=== PATIENT | male | born 1975 ===

== ENCOUNTER 2017-06-28 10:42 | Emergency (ER) | payer OTHER ==
[2017-06-28 10:47] VITALS: TEMP 99.1
--- NOTE | 2017-06-28 11:44 | C.PDOC ---
History Of Present Illness 42yo male, otherwise well, presents to ED for evaluation of a splinter in his right 3rd finger. Patient states he went to open the door in his apartment and there was a jagged piece of wood on which he injured his finger. HE states the pain is 6/10, dull and throbbing in nature and worse with movement. He denies any numbness or tingling to his finger. No other medical complaints. PMD: None Time Seen by Provider: 06/28/17 10:51 Chief Complaint (Nursing): Finger,Hand,&Wrist History Per: Patient History/Exam Limitations: no limitations Current Symptoms Are (Timing): Still Present Quality: Dull, "Pain" Pain Scale Rating Of: 6 Exacerbating Factor(s): Strenuous Use Of Affected Area Past Medical History Reviewed: Historical Data, Nursing Documentation, Vital Signs Vital Signs: Last Vital Signs Temp 99.1 F 06/28/17 10:46 Pulse 88 06/28/17 10:46 Resp 18 06/28/17 10:46 BP 146/83 06/28/17 10:46 Pulse Ox 97 06/28/17 12:44 - Medical History PMH: No Chronic Diseases Surgical History: No Surg Hx Family History: States: No Known Family Hx - Social History Hx Alcohol Use: Yes Hx Substance Use: No - Immunization History Hx Tetanus Toxoid Vaccination: No Hx Influenza Vaccination: No Hx Pneumococcal Vaccination: No Review Of Systems Except As Marked, All Systems Reviewed And Found Negative. Constitutional: Negative for: Fever, Chills Musculoskeletal: Positive for: Hand Pain (pain to right 3rd digit) Neurological: Negative for: Weakness, Numbness Physical Exam - Physical Exam Appears: Non-toxic, No Acute Distress Skin: Normal Color Eye(s): bilateral: Normal Inspection Neck: Supple Chest: Symmetrical Cardiovascular: Rhythm Regular Respiratory: Normal Breath Sounds Extremity: Tenderness (right 3rd digit tender to touch), Swelling (swelling to tip of right 3rd digit), Other (entry point noted on tip of right 3rd digit, no surrounding erythema, fluctuance. ) Neurological/Psych: Oriented x3 ED Course And Treatment O2 Sat by Pulse Oximetry: 97 (RA) Pulse Ox Interpretation: Normal Medical Decision Making Medical Decision Making: Impression: Right 3rd digit injury Plan: -- XR Right 3rd digit Time: 1223 XR Right 3rd digit FINDINGS: RIGHT MIDDLE FINGER: Right middle finger normal, without fracture of focal lesion. Remainder of the right hand (as seen on the AP view) grossly unremarkable. JOINTS: Normal. SOFT TISSUES: Normal. OTHER FINDINGS: None. IMPRESSION: Normal right middle finger radiographs. Disposition - Disposition Referrals: [facility] [Outside] Disposition: HOME/ ROUTINE Disposition Time: 13:08 Condition: STABLE Instructions: Foreign Body in Skin (DC) Forms: [facility] (Wolof), Gen Discharge Inst Lao, Work Excuse - Clinical Impression Clinical Impression: Splinter in skin - Scribe Statement The provider has reviewed the documentation as recorded by the Scribe (Liane Fatima) Provider Attestation: All medical record entries made by the Scribe were at my direction and personally dictated by me. I have reviewed the chart and agree that the record accurately reflects my personal performance of the history, physical exam, medical decision making, and the department course for this patient. I have also personally directed, reviewed, and agree with the discharge instructions and disposition.
--- NOTE | 2017-06-28 12:24 | RAD ---
PROCEDURE: Right middle finger radiographs. HISTORY: splinter COMPARISON: None. TECHNIQUE: AP radiograph of the right hand, as well as spot oblique and lateral images of right middle finger were obtained. FINDINGS: RIGHT MIDDLE FINGER: Right middle finger normal, without fracture of focal lesion. Remainder of the right hand (as seen on the AP view) grossly unremarkable. JOINTS: Normal. SOFT TISSUES: Normal. OTHER FINDINGS: None. IMPRESSION: Normal right middle finger radiographs.
[2017-06-28 13:19] VITALS: BP 140/76; PULSE 68; RESP 20; O2SAT 96
== END 2017-06-28 13:19 | disposition home or self-care (01) ==
LOC: C.ER 10:42 → MERGE 10:42 → C.ER 13:19
DX: S60.452A Superficial foreign body of right middle finger, initial encounter (principal); W45.8XXA Other foreign body or object entering through skin, initial encounter